=== PATIENT | male | born 1995 | race Caucasian/White ===

== ENCOUNTER 2016-09-23 18:12 | Emergency (ER) | payer MEDICARE ==
[~2016-09-23] VITALS: Ht 175.3 cm; Wt 65.9 kg
[2016-09-23 18:48] VITALS: BP 121/82; PULSE 91; RESP 16; TEMP 98.3; O2SAT 100
[2016-09-23] MEDS ORDERED: SODIUM CHLOR 0.9% 1000 ML INJ 1,000 ML IV SCH (22:40)
--- NOTE | 2016-09-23 22:44 | PD ---
HPI Chief Complaint: GI Complaint Time Seen by Provider: 22:33 Travel History International Travel<30 days: No Contact w/Intl Traveler<30days: No Traveled to known affect area: No History of Present Illness HPI 21-year-old male complains of left-sided abdominal pain with nausea vomiting or diarrhea. Patient states the symptoms started this morning. Patient has history kidney failure status post kidney transplant 13 years ago. Patient's on immunosuppression medications for this. Patient states that he moved to the area recently and doesn't have a local physician. Patient denies any fever chills. Patient denies any blood or mucus in the stool. Patient states that the transplanted kidneys on the right side of the abdomen. Patient states the pain is cramping pain localized to the left side of the abdomen since this morning. Patient denies any pain radiation. Patient states the pain has been intermittent. Patient states that he had creatinine level done about 7 weeks ago and was 2.6. PFSH Past Medical History Cardiovascular Problems: Yes (HTN; TACHYCARDIA) Chemotherapy: Yes (WHEN 1 YEARS OLD) Respiratory: Yes (ASTHMA) Social History Tobacco Use: No Allergies-Medications (Allergen,Severity, Reaction): Coded Allergies: Amoxicillin (Verified Allergy, Severe, ITCH AND SWELL, 09/23/16) Cipro (Verified Allergy, Severe, SWELLING, 09/23/16) Vancomycin (Verified Allergy, Severe, ITCH, 09/23/16) Latex (Verified Allergy, Unknown, SWELL, 09/23/16) Reported Meds & Prescriptions Reported Meds & Active Scripts Active Zofran Odt (Ondansetron Odt) 4 Mg Tab 4 Mg SL Q6HR PRN Bactrim (Sulfamethoxazole-Trimethoprim) 400-80 Mg Tab 1 Tab PO BID Reported Levofloxacin 500 Mg Tab 500 Mg PO DAILY Tacrolimus 1 Mg Cap 2 Mg PO Q12H Prednisone 10 Mg Tab 10 Mg PO DAILY Review of Systems General / Constitutional: No: Fever Eyes: No: Visual changes HENT: No: Headaches Cardiovascular: No: Chest Pain or Discomfort Respiratory: No: Shortness of Breath Gastrointestinal: Positive: Nausea, Vomiting, Abdominal Pain Genitourinary: No: Dysuria Musculoskeletal: No: Pain Skin: No Rash Neurologic: No: Weakness Psychiatric: No: Depression Endocrine: No: Polydipsia Hematologic/Lymphatic: No: Easy Bruising Physical Exam Narrative GENERAL: Well-nourished, well-developed patient. SKIN: Warm and dry. HEAD: Normocephalic. EYES: No scleral icterus. No injection or drainage. NECK: Supple, trachea midline. No JVD or lymphadenopathy. CARDIOVASCULAR: Regular rate and rhythm without murmurs, gallops, or rubs. RESPIRATORY: Breath sounds equal bilaterally. No accessory muscle use. GASTROINTESTINAL: Abdomen soft, nondistended. Patient has mild tenderness on palpation left lower quadrant of the abdomen. No rebound tenderness. No mass. MUSCULOSKELETAL: No cyanosis, or edema. BACK: Nontender without obvious deformity. No CVA tenderness. Neurologic exam normal. Data Data Last Documented VS Vital Signs Date Time Temp Pulse Resp B/P Pulse Ox O2 Delivery O2 Flow Rate FiO2 09/24/16 01:32 78 18 137/84 99 09/23/16 18:48 98.3 Orders Complete Blood Count With Diff (09/23/16 22:40) Comprehensive Metabolic Panel (09/23/16 22:40) Lipase (09/23/16 22:40) Urinalysis - C+S If Indicated (09/23/16 22:40) Iv Access Insert/Monitor (09/23/16 22:40) Ecg Monitoring (09/23/16 22:40) Oximetry (09/23/16 22:40) Ondansetron Inj (Zofran Inj) (09/23/16 22:45) Sodium Chlor 0.9% 1000 Ml Inj (Ns 1000 M (09/23/16 22:40) Urine Culture (09/23/16 22:55) Sulfameth-Trimeth 400-80 Mg (Bactrim 400 (09/24/16 00:15) Labs Laboratory Tests Test 09/23/16 09/23/16 09/23/16 22:55 23:00 23:50 Urine Collection Type CLEAN CATCH Urine Color STRAW Urine Turbidity MOD Urine pH 6.5 Urine Specific Palmer 1.008 Urine Protein 30 mg/dL Urine Glucose (UA) NEG mg/dL Urine Ketones NEG mg/dL Urine Occult Blood MOD Urine Nitrite POS Urine Bilirubin NEG Urine Leukocyte Esterase LARGE Urine RBC 10-14 /hpf Urine WBC INNUM /hpf Urine Squamous Epithelial 0-5 /hpf Cells Urine Amorphous Sediment MOD Urine Bacteria MANY /hpf Microscopic Urinalysis Comment CULTURE INDICATED Sodium Level 142 MEQ/L Potassium Level 4.0 MEQ/L Chloride Level 107 MEQ/L Carbon Dioxide Level 25.1 MEQ/L Anion Gap 10 MEQ/L Blood Urea Nitrogen 33 MG/DL Creatinine 3.40 MG/DL Estimat Glomerular Filtration 23 ML/MIN Rate Random Glucose 80 MG/DL Calcium Level 9.6 MG/DL Total Bilirubin 0.4 MG/DL Aspartate Amino Transf 20 U/L (AST/SGOT) Alanine Aminotransferase 10 U/L (ALT/SGPT) Alkaline Phosphatase 87 U/L Total Protein 9.2 GM/DL Albumin 3.6 GM/DL Lipase 130 U/L White Blood Count 8.9 TH/MM3 Red Blood Count 4.03 MIL/MM3 Hemoglobin 10.6 GM/DL Hematocrit 33.3 % Mean Corpuscular Volume 82.8 FL Mean Corpuscular Hemoglobin 26.2 PG Mean Corpuscular Hemoglobin 31.7 % Concent Red Cell Distribution Width 13.3 % Platelet Count 265 TH/MM3 Mean Platelet Volume 9.6 FL Neutrophils (%) (Auto) % Lymphocytes (%) (Auto) % Monocytes (%) (Auto) % Eosinophils (%) (Auto) % Basophils (%) (Auto) % Neutrophils # (Auto) TH/MM3 Lymphocytes # (Auto) TH/MM3 Monocytes # (Auto) TH/MM3 Eosinophils # (Auto) TH/MM3 Basophils # (Auto) TH/MM3 CBC Comment AUTO DIFF Differential Total Cells 100 Counted Neutrophils % (Manual) 44 % Lymphocytes % 42 % Monocytes % 10 % Eosinophils % 4 % Neutrophils # (Manual) 3.9 TH/MM3 Differential Comment FINAL DIFF MANUAL Platelet Estimate NORMAL Platelet Morphology Comment NORMAL Red Cell Morphology Comment NORMAL MDM Medical Decision Making Medical Screen Exam Complete: Yes Emergency Medical Condition: Yes Interpretation(s) 11:57 PM. UA positive for WBC and few RBC and bacteria. Differential Diagnosis Differential diagnosis including gastroenteritis, gastritis, PUD, pancreatitis, cholecystitis, colitis, UTI, pyelonephritis, nephrolithiasis. Narrative Course 31-year-old male complains of left low quadrant abdominal pain with nausea vomiting diarrhea since this morning. Normal saline solution 1 L IV bolus. Zofran 4 mg IV. Bactrim one tablet by mouth given. Diagnosis Primary Impression: Gastroenteritis Additional Impressions: UTI (urinary tract infection) Qualified Code: N30.00 - Acute cystitis without hematuria Chronic kidney disease Qualified Code: N18.4 - Chronic kidney disease, stage 4 (severe) Patient Instructions: General Instructions Med/Other Pt SpecificInfo: Prescription(s) given Scripts Ondansetron Odt (Zofran Odt)4 Mg Tab4 Mg SL Q6HR PRN (Nausea/Vomiting) #12 TAB Ref 0 Prov:Faustino Mann MD 09/24/16 Sulfamethoxazole-Trimethoprim (Bactrim)400-80 Mg Tab1 Tab PO BID #14 TAB Ref 0 Prov:Faustino Mann MD 09/24/16 Disposition: 01 DISCHARGE HOME Condition: Stable Faustino Mann MD Sep 23, 2016 22:44
[2016-09-23] MEDS ORDERED: ONDANSETRON HCL 4 MG/2 ML VIAL IVP ONE (22:45)
[2016-09-23] MEDS ORDERED: PRED10 PO (23:08)
[2016-09-23] MEDS ORDERED: TACR1CAP PO (23:08)
[2016-09-23] MEDS ORDERED: LEVO500T3 PO (23:08)
[2016-09-23 23:23] LABS: GLUCOSE,URINE NEG (NEG); KETONE, URINE NEG (NEG); PH, URINE 6.5 (5.0-8.5)
[2016-09-23 23:33] LABS: CHLORIDE 107 MEQ/L (98-107); SODIUM (NA) 142 MEQ/L (136-145)
[2016-09-23 23:37] LABS: ANION GAP 10 MEQ/L (5-15); BICARBONATE 25.1 MEQ/L (21.0-32.0); BLOOD UREA NITROGEN 33 MG/DL (7-18)
[2016-09-23 23:40] LABS: ALT (GPT) 10 U/L (12-78); AST (GOT) 20 U/L (15-37); GLOMERULAR FILTRATION RATE 23 ML/MIN (>89)
[2016-09-23 23:41] LABS: TOTAL BILIRUBIN ADULT 0.4 MG/DL (0.2-1.0)
[2016-09-23 23:42] LABS: ALKALINE PHOSPHATASE 87 U/L (45-117)
[2016-09-23 23:50] LABS: BLOOD, URINE MOD (NEG); METHOD OF COLLECTION CLEAN CATCH; NITRITE,URINE POS (NEG); URINE COLOR STRAW (YELLW/STRAW)
[2016-09-23 23:51] LABS: BACTERIA, URINE MANY /hpf; WBC, URINE INNUM /hpf (0-5)
[2016-09-23 23:52] LABS: COMMENT (UR) CULTURE INDICATED; CULTURE IF INDICATED CULTURE INDICATED; SQUAMOUS EPITHELIAL CELL URINE 0-5 /hpf (0-5)
[2016-09-24] MEDS ORDERED: ZOFR4TAB3 SL (00:09)
[2016-09-24] MEDS ORDERED: BACT400T PO (00:09)
[2016-09-24] MEDS ORDERED: SULFAMETHOXAZOLE-TRIMETHOPRIM 400-80 MG TAB PO ONE (00:15)
[2016-09-24 00:53] LABS: HEMATOCRIT 33.3 % (39.0-51.0); MEAN CELL VOLUME 82.8 FL (80.0-100.0); MEAN CORPUSCULAR HEMOGLOBIN 26.2 PG (27.0-34.0); MEAN CORPUSCULAR HGB CONC 31.7 % (32.0-36.0); RED BLOOD COUNT 4.03 MIL/MM3 (4.50-5.90); RED CELL DISTRIBUTION WIDTH 13.3 % (11.6-17.2)
[2016-09-24 00:58] LABS: HEMO FLAGS AUTO DIFF
[2016-09-24 01:01] LABS: PLATELET COUNT 265 TH/MM3 (150-450); WHITE BLOOD COUNT 8.9 TH/MM3 (4.0-11.0)
[2016-09-24 01:20] LABS: EOSINOPHILS 4 % (0-4); NEUTROPHIL # MANUAL DIFF 3.9 TH/MM3 (1.8-7.7); PLATELET ESTIMATE SMEAR NORMAL (NORMAL); PLATELET MORPHOLOGY NORMAL (NORMAL); POLYS (SEG NEUTROPHILS) 44 % (16-70); SCAN/DIFF FINAL DIFF MANUAL; WBC DIFF SAMPLE 100
[2016-09-24 01:32] VITALS: BP 137/84
== END 2016-09-24 01:35 | disposition home or self-care (01) ==
LOC: PHED 18:12
DX: K52.9 Noninfective gastroenteritis and colitis, unspecified (principal); N30.00 Acute cystitis without hematuria; N18.4 Chronic kidney disease, stage 4 (severe); R11.2 Nausea with vomiting, unspecified; R19.7 Diarrhea, unspecified; I12.9 Hypertensive chronic kidney disease with stage 1 through stage 4 chronic kidney disease, or unspecified chronic kidney disease; J45.909 Unspecified asthma, uncomplicated; B96.89 Other specified bacterial agents as the cause of diseases classified elsewhere
CPT/HCPCS: 80053; 81001; 83690; 85007; 85027; 87077; 87086; 87186; 96361; 96374; 99284; J2405; J7030